=== PATIENT | male | born 2000 | race African-American/Black ===

== ENCOUNTER 2021-07-19 11:04 | Emergency (ER) | payer SELFPAY ==
[2021-07-19 11:29] VITALS: TEMP 98; BMI 26.6
[2021-07-19] MEDS ORDERED: SODIUM CHLORIDE 1,000 ML IV STA (11:50)
[2021-07-19] MEDS ORDERED: ACETAMINOPHEN 1000 MG/100 ML VIAL IVPB ONE (12:01)
[2021-07-19] MEDS ORDERED: ONDANSETRON 4 MG/2 ML VIAL IVPUSH ONE ×2 (12:01→13:44)
[2021-07-19] MEDS ORDERED: FAMOTIDINE 20 MG/50 ML IVPB 20 MG/50 ML MG IVPB ONE ×2 (12:02→12:40)
[2021-07-19] MEDS ORDERED: ONDANSETRON 4 MG/2 ML VIAL ONE ×2 (12:40→13:50)
[2021-07-19] MEDS ORDERED: ACETAMINOPHEN INJECTION 100 ML IVPB ONE (12:40)
[2021-07-19] MEDS ORDERED: LISINOPRIL 20 MG TABLET PO ONE (12:42)
[2021-07-19 12:50] LABS: BASO % 0.4 % (0-2.0); EOS % 1.1 % (0-4.5); HEMATOCRIT 41.3 % (35.4-49); HEMOGLOBIN 13.5 GM/dL (11.7-16.9); LYMPH % 11.7 % (8-40); MCH 26.7 pg (25.7-33.7); MCHC 32.7 g/dl (32.0-35.9); MEAN CELL VOLUME 81.7 fl (80-96); MEAN PLT VOLUME 8.2 fl (7.5-11.1); MONO % 3.2 % (3.8-10.2); NEUT % 83.6 % (42.8-82.8); PLATELET COUNT 269 10^3/uL (134-434); RBC 5.06 M/mm3 (4.00-5.60); RDW 13.9 % (11.9-15.9); WHITE BLOOD COUNT 7.1 K/mm3 (4.0-10.0)
[2021-07-19 12:57] LABS: VENOUS BASE EXCESS -0.1 mmol/L (-2-2); VENOUS O2 SATURATION 97.1 % (70-80); VENOUS PCO2 39.7 mmHg (38-52); VENOUS PH 7.407 (7.310-7.410)
[2021-07-19 12:58] LABS: INR 1.05 (0.83-1.09); PROTHROMBIN TIME (PATIENT) 11.8 SEC (9.7-13.0)
[2021-07-19 13:01] LABS: ACTIVATED PTT 20.6 SECONDS (25.2-36.5)
[2021-07-19] MEDS ORDERED: LISINOPRIL 20 MG TABLET ONE (13:03)
[2021-07-19 13:09] LABS: CHLORIDE 102 mmol/L (98-107); SODIUM 137 mmol/L (136-145)
[2021-07-19 13:11] LABS: ALBUMIN 3.9 g/dl (3.4-5.0); ANION GAP 10 MMOL/L (8-16); BLOOD UREA NITROGEN 9.5 mg/dL (7-18); CALCIUM 9.4 mg/dL (8.5-10.1); CO2 25 mmol/L (21-32)
[2021-07-19 13:12] LABS: GLUCOSE,RANDOM 286 mg/dL (74-106)
[2021-07-19 13:14] LABS: SGPT/ALT 33 U/L (13-61)
[2021-07-19 13:15] LABS: SGOT/AST 17 U/L (15-37)
[2021-07-19 13:16] LABS: BILIRUBIN,TOTAL 0.7 mg/dL (0.2-1); TOT PROT 7.9 g/dl (6.4-8.2)
[2021-07-19 13:17] LABS: ALK PHOS 88 U/L (45-117)
[2021-07-19 13:33] LABS: PH,URINE 8.5 (5.0-8.0); URINE APPEARANCE CLEAR; URINE BILIRUBIN NEGATIVE (NEGATIVE); URINE COLOR YELLOW; URINE GLUCOSE (UA) 3+ (NEGATIVE); URINE KETONE TRACE (NEGATIVE); URINE LEUK ESTERASE NEGATIVE (NEGATIVE); URINE NITRITE NEGATIVE (NEGATIVE); URINE PROTEIN NEGATIVE (NEGATIVE); URINE UROBILINOGEN 0.2 mg/dL (0.2-1.0)
[2021-07-19] MEDS ORDERED: SODIUM CHLORIDE 0.9% 500 ML INFUS.BAG IV ONE (13:34)
[2021-07-19 13:58] VITALS: BP 141/80; PULSE 80
[2021-07-19 14:12] LABS: LIPASE 70 U/L (73-393)
== END 2021-07-19 15:19 | disposition home or self-care (01) ==
LOC: JER 11:04
PROC: 3E0333Z Introduction of Anti-inflammatory into Peripheral Vein, Percutaneous Approach (ICD-10-PCS; principal; 2021-07-19)
PROC: 3E033GC Introduction of Other Therapeutic Substance into Peripheral Vein, Percutaneous Approach (ICD-10-PCS; 2021-07-19)
PROC: 3E033GC Introduction of Other Therapeutic Substance into Peripheral Vein, Percutaneous Approach (ICD-10-PCS; 2021-07-19)
PROC: 3E0337Z Introduction of Electrolytic and Water Balance Substance into Peripheral Vein, Percutaneous Approach (ICD-10-PCS; 2021-07-19)
DX: R73.9 Hyperglycemia, unspecified (principal); R11.10 Vomiting, unspecified
CPT/HCPCS: 36415; 71046-TC-FY; 80053; 81003; 82010; 82550; 82553; 82803; 83690; 84484; 85025; 85610; 85730; 87086; 87804; 93005; 93010; 99285-25; C9803; J0131; U0003; U0005

== ENCOUNTER 2023-02-25 22:13 | Emergency (ER) | payer OTHER ==
[2023-02-25 22:26] VITALS: PULSE 89; RESP 20; TEMP 97.7; BMI 29.0
[2023-02-25] MEDS ORDERED: LACTATED RINGERS SOLUTION 1000 ML INFUS.BAG IV ONE (22:57)
[2023-02-25] MEDS ORDERED: ONDANSETRON 4 MG/2 ML VIAL IVPUSH ONE (22:57)
[2023-02-25] MEDS ORDERED: FAMOTIDINE 20 MG/50 ML IVPB 20 MG/50 ML MG IVPB ONE ×2 (22:57→23:24)
[2023-02-25] MEDS ORDERED: MAG HYDROX/AL HYDROX/SIMETH -MYLANTA- ORAL SUSPENSION PO ONE (22:57)
[2023-02-25] MEDS ORDERED: LISINOPRIL 10 MG TABLET PO ONE (23:20)
[2023-02-25] MEDS ORDERED: MAG HYDROX/AL HYDROX/SIMETH 30 ML UNIT-DOSE CUP ONE (23:23)
[2023-02-25] MEDS ORDERED: ONDANSETRON 4 MG/2 ML VIAL ONE (23:24)
[2023-02-25 23:25] LABS: BASO % 0.3 % (0-2.0); EOS % 1.3 % (0-4.5); HEMATOCRIT 40.1 % (35.4-49); HEMOGLOBIN 13.3 GM/dL (11.7-16.9); LYMPH % 10.3 % (8-40); MCH 26.6 pg (25.7-33.7); MCHC 33.2 g/dl (32.0-35.9); MEAN CELL VOLUME 80.2 fl (80-96); MEAN PLT VOLUME 7.2 fl (7.5-11.1); NEUT % 79.1 % (42.8-82.8); PLATELET COUNT 236 10^3/uL (134-434); RDW 13.5 % (11.9-15.9); WHITE BLOOD COUNT 10.9 K/mm3 (4.0-10.0)
[2023-02-25] MEDS ORDERED: LISINOPRIL 10 MG TABLET ONE (23:33)
[2023-02-25 23:44] VITALS: BP 137/81
[2023-02-25 23:54] LABS: POTASSIUM 3.9 mmol/L (3.5-5.1)
[2023-02-25 23:56] LABS: CALCIUM 9.5 mg/dL (8.5-10.1)
[2023-02-25 23:57] LABS: BLOOD UREA NITROGEN 10.2 mg/dL (7-18); MAGNESIUM 1.7 mg/dL (1.8-2.4)
[2023-02-26 00:01] LABS: BILIRUBIN,TOTAL 0.6 mg/dL (0.2-1); TOT PROT 7.8 g/dl (6.4-8.2)
[2023-02-26 00:12] LABS: LACTIC ACID 2.7 mmol/L (0.4-2.0)
[2023-02-26] MEDS ORDERED: LACTATED RINGERS SOLUTION 1000 ML INFUS.BAG IV ONE (00:13)
== END 2023-02-26 02:41 | disposition home or self-care (01) ==
LOC: JER 22:13
PROC: 3E033GC Introduction of Other Therapeutic Substance into Peripheral Vein, Percutaneous Approach (ICD-10-PCS; principal; 2023-02-25)
PROC: 3E033GC Introduction of Other Therapeutic Substance into Peripheral Vein, Percutaneous Approach (ICD-10-PCS; 2023-02-25)
DX: R11.10 Vomiting, unspecified (principal); R19.7 Diarrhea, unspecified; R10.84 Generalized abdominal pain
CPT/HCPCS: 36415; 80053; 83605; 83735; 85025; 93005; 93010; 99284-25

== ENCOUNTER 2023-10-20 20:12 | Emergency (ER) | payer OTHER ==
[2023-10-20 20:20] VITALS: BP 167/84; PULSE 94; RESP 18; TEMP 98.3; BMI 29.7
[2023-10-20] MEDS ORDERED: IBUPROFEN 600 MG TABLET (FP) PO ONE (21:03)
[2023-10-20 21:17] LABS: PH,URINE 6.5 (5.0-8.0); URINE APPEARANCE Error; URINE BILIRUBIN NEGATIVE (NEGATIVE); URINE COLOR YELLOW; URINE GLUCOSE (UA) 3+ (NEGATIVE); URINE KETONE TRACE (NEGATIVE); URINE LEUK ESTERASE NEGATIVE (NEGATIVE); URINE NITRITE NEGATIVE (NEGATIVE); URINE PROTEIN NEGATIVE (NEGATIVE); URINE UROBILINOGEN 0.2 mg/dL (0.2-1.0)
[2023-10-20] MEDS: IBUPROFEN 600 MG TABLET (FP) PO ONE (21:25)
[2023-10-20 22:48] LABS: SYPHILIS W/ RPR CONF NON-REACTIVE (NONREACTIVE)
[2023-10-20] MEDS ORDERED: LIDOCAINE HCL 1%, 10 MG/ML (20ML VIAL) ONE (23:02)
[2023-10-20] MEDS ORDERED: DOXYCYCLINE HYCLATE 100 MG CAPSULE PO ONE (23:02)
[2023-10-20] MEDS ORDERED: cefTRIAXone SODIUM 1 GM VIAL ONE (23:02)
[2023-10-20] MEDS: DOXYCYCLINE HYCLATE 100 MG CAPSULE PO ONE (23:11)
[2023-10-20 23:16] LABS: HIV INTERPRETATION NEGATIVE (NEGATIVE)
== END 2023-10-20 23:17 | disposition home or self-care (01) ==
LOC: JER 20:12 → JERFT 20:12
DX: R30.0 Dysuria (principal); R36.9 Urethral discharge, unspecified; N50.811 Right testicular pain; R31.9 Hematuria, unspecified; R11.2 Nausea with vomiting, unspecified
CPT/HCPCS: 36415; 76870-TC; 81003; 86780; 87086; 87389; 87491; 87591; 99284-25